=== PATIENT | male | born 1955 | race Caucasian/White ===

== ENCOUNTER 2024-03-25 19:53 | Inpatient (IN) | payer MEDICARE, OTHER, SELFPAY ==
[2024-03-25] VITALS (9 sets, daily range): BP systolic 123–165; BP diastolic 64–76; BMI 28.1; BMI 28.2
[2024-03-25 16:17] LABS: Urine Albumin Negative (Neg - Trace); Urine Bilirubin Negative (Negative); Urine Character Slightly Cloudy (Clear); Urine Color Yellow; Urine Glucose Negative (Negative); Urine Ketone Negative (Negative); Urine Leukocyte 1+ (Negative); Urine Nitrite Negative (Negative); Urine Occult Blood 4+ (Negative); Urine Urobilinogen Negative (Neg - 1+)
[2024-03-25 16:23] LABS: Urine Bacteria Many (Negative); Urine Red Blood Cell 50-60 /HPF (0-2)
--- NOTE | 2024-03-25 16:44 | ED.GENMED ---
History of Present Illness
<Kitty Egde DO, Resident - Last Filed: 03/25/24 19:33>
General
Chief Complaint: Urinary Symptoms
Source: patient and spouse
Exam Limitations: none
Time Seen by Provider: 03/25/24 16:12
Nursing documentation reviewed up to this point in time: agreed with
History of Present Illness
History of Present Illness:
Mr. Sundar Moseley is a 68yo M w pmh CAD s/p stent, HTN, HLD, RA, and vertigo in the ED for pain with urinating. The dysuria started 03:45 this morning and is associated with urinary hesitancy and increased urgency. Afterwards, he walked down a
flight of stairs and started sweating profusely and feeling dizzy, lightheaded, SOB, and nauseous w/o vomiting. Pt states he feels urinary retention after urinating. At about 15:00, he started to notice blood and a purulent discharge in his urine.
Prior to giving urine here for urinalysis, he reported wiping off blood and pus. His reports a temperature of 100.3F today. Pt denies GALEAS, CP, palpitations, cough, abdominal pain, flank pain, diarrhea. +constipation, last BM this AM.
Family hx nephrolithiasis in father and brother.
Past History
<Kitty Edge DO, Resident - Last Filed: 03/25/24 19:33>
Past History
ED Past Medical History: CAD (LAD s/p stent 2020), HTN, Hypercholesterolemia, Other (vertigo) and Other (rheumatoid arthritis)
ED Past Surgical History: Cardiac (LAD stent 2020) and Other (inguinal hernia)
Patient has exhibited threatening behavior?: No
Family History
Family History: Other (kidney stones in father and brother)
Review of Systems
<Kitty Edge DO, Resident - Last Filed: 03/25/24 19:33>
Review of Systems
Allergies reviewed?: Yes
All Other Systems: ROS reviewed and negative except as documented in HPI and ROS
Phy Exam
<Kitty Edge DO, Resident - Last Filed: 03/25/24 19:33>
Physical Exam
Physical Exam:
.
General Physical Exam
General age: appears stated age
General Skin: warm and dry
General Habitus: normal
General Mental: alert
General Hydration: appears well hydrated
Cardiovascular Exam
Cardiovascular Exam: regular rate/rhythm, no edema, no gallop, no murmur and normal peripheral pulses
Pulmonary Exam
Pulmonary Exam: lungs clear, no respiratory distress, no rales, no rhonchi, no wheezing and no cough
Oxygen Status: room air
Gastrointestinal Exam
Gastrointestinal Exam: soft, no organomegaly, non distended, no cva tenderness and tender (epigastric)
Auscultation of Abdomen: hypoactive
Neurological Exam
Neurological Exam: alert and oriented x3
Skin Exam
Skin Exam: normal color, warm/dry and no rash
Psychiatric Exam
Psychiatric Exam: normal mood/affect
Course
<Kitty Edge DO, Resident - Last Filed: 03/25/24 19:33>
Orders/Labs/Results
Orders:
Orders
03/25/24 16:11
Urinalysis Reflex To Culture Urgent
Date Specimen was Collected: 03/25/24
Time Specimen was Collected: 16:07
Urine Microscopic Reflex Cult Urgent
Urine Culture Urgent
FARZAD Source: U
Specimen Description:
Date Specimen was Collected: 03/25/24
Time Specimen was Collected: 16:07
03/25/24 16:41
CT Abd/pel Without Iv Or Oral Urgent
Comment:
Reason For Exam: complicated uti sx, possible kidney stones
03/25/24 16:47
Basic Metabolic Panel Urgent
Complete Blood Count/No Diff Urgent
03/25/24 17:04
Cefepime HCl [Maxipime] 2,000 mg IV NOW STA
03/25/24 17:20
Lactic Acid Q4H
Comment: CANCEL 2nd LACTIC ACID IF 1st LACTIC ACID IS LESS THAN 2
Blood Culture Urgent
FARZAD Source: Blood/Venous
Specimen Description:
03/25/24 17:28
Blood Culture Routine
FARZAD Source: Blood/Venous
Specimen Description:
03/25/24 18:31
0.9% Sodium Chloride 1000 ml [Nss] 1,000 ml IV BOLUS
03/26/24 08:00
Cholecalciferol (Vitamin D3) [VITAMIN D3 (cholecalciferol)] 2,000 unit PO DAILY
FOLic ACID [Folvite] 1 mg PO DAILY
Losartan/Hydrochlorothiazide [Hyzaar 100-12.5 Tablet] 1 tab PO DAILY
Multivitamin [Theragran] 1 ea PO DAILY
03/26/24 18:00
Amlodipine [Norvasc] 2.5 mg PO QPM
Aspirin Low Dose EC [Aspir Low (Enteric Coated)] 81 mg PO QPM
Atorvastatin [Lipitor] 80 mg PO QPM
Celecoxib [Celebrex] 200 mg PO QPM
Hydroxychloroquine [Plaquenil] 400 mg PO QPM
Abnormal Lab Results
03/25/24 03/25/24
16:11 16:47
WBC 21.1 H 10^3/uL
(4.8-10.8)
RBC 4.41 L 10^6/uL
(4.70-6.10)
Hct 37.7 L %
(39.0-52.0)
BUN 21 H mg/dl
(9-20)
Glucose 122 H mg/dl
(70-99)
Ur Occult Blood Reflex 4+ A
(Negative)
Leukocyte Esterase Rfl 1+ A
(Negative)
Urine RBC 50-60 A /HPF
(0-2)
Urine WBC (Reflex) 11-15 A /HPF
(0-5)
Urine Bacteria (Reflex) Many A
(Negative)
03/25/24 16:47
03/25/24 16:47
Vital Signs
Initial and Last Documented VS:
Initial Vital Signs
Temp Pulse Resp BP Pulse Ox
99.3 F 99 18 142/76 95
03/25/24 16:01 03/25/24 16:01 03/25/24 16:01 03/25/24 16:01 03/25/24 16:01
Last Documented Vital Signs
Temp Pulse Resp BP Pulse Ox
99.9 F 84 25 134/67 96
03/25/24 17:48 03/25/24 19:15 03/25/24 19:15 03/25/24 19:00 03/25/24 19:15
<Debbie Agrawal MD - Last Filed: 03/25/24 19:18>
Orders/Labs/Results
Orders:
Orders
03/25/24 16:11
Urinalysis Reflex To Culture Urgent
Date Specimen was Collected: 03/25/24
Time Specimen was Collected: 16:07
Urine Microscopic Reflex Cult Urgent
Urine Culture Urgent
FARZAD Source: U
Specimen Description:
Date Specimen was Collected: 03/25/24
Time Specimen was Collected: 16:07
03/25/24 16:41
CT Abd/pel Without Iv Or Oral Urgent
Comment:
Reason For Exam: complicated uti sx, possible kidney stones
03/25/24 16:47
Basic Metabolic Panel Urgent
Complete Blood Count/No Diff Urgent
03/25/24 17:04
Cefepime HCl [Maxipime] 2,000 mg IV NOW STA
03/25/24 17:20
Lactic Acid Q4H
Comment: CANCEL 2nd LACTIC ACID IF 1st LACTIC ACID IS LESS THAN 2
Blood Culture Urgent
FARZAD Source: Blood/Venous
Specimen Description:
03/25/24 17:28
Blood Culture Routine
FARZAD Source: Blood/Venous
Specimen Description:
03/25/24 18:31
0.9% Sodium Chloride 1000 ml [Nss] 1,000 ml IV BOLUS
03/26/24 08:00
Cholecalciferol (Vitamin D3) [VITAMIN D3 (cholecalciferol)] 2,000 unit PO DAILY
FOLic ACID [Folvite] 1 mg PO DAILY
Losartan/Hydrochlorothiazide [Hyzaar 100-12.5 Tablet] 1 tab PO DAILY
Multivitamin [Theragran] 1 ea PO DAILY
03/26/24 18:00
Amlodipine [Norvasc] 2.5 mg PO QPM
Aspirin Low Dose EC [Aspir Low (Enteric Coated)] 81 mg PO QPM
Atorvastatin [Lipitor] 80 mg PO QPM
Celecoxib [Celebrex] 200 mg PO QPM
Hydroxychloroquine [Plaquenil] 400 mg PO QPM
Abnormal Lab Results
03/25/24 03/25/24
16:11 16:47
WBC 21.1 H 10^3/uL
(4.8-10.8)
RBC 4.41 L 10^6/uL
(4.70-6.10)
Hct 37.7 L %
(39.0-52.0)
BUN 21 H mg/dl
(9-20)
Glucose 122 H mg/dl
(70-99)
Ur Occult Blood Reflex 4+ A
(Negative)
Leukocyte Esterase Rfl 1+ A
(Negative)
Urine RBC 50-60 A /HPF
(0-2)
Urine WBC (Reflex) 11-15 A /HPF
(0-5)
Urine Bacteria (Reflex) Many A
(Negative)
03/25/24 16:47
03/25/24 16:47
Vital Signs
Initial and Last Documented VS:
Initial Vital Signs
Temp Pulse Resp BP Pulse Ox
99.3 F 99 18 142/76 95
03/25/24 16:01 03/25/24 16:01 03/25/24 16:01 03/25/24 16:01 03/25/24 16:01
Last Documented Vital Signs
Temp Pulse Resp BP Pulse Ox
99.9 F 84 25 134/67 96
03/25/24 17:48 03/25/24 19:15 03/25/24 19:15 03/25/24 19:00 03/25/24 19:15
<Kitty Edge DO, Resident - Last Filed: 03/25/24 19:33>
MDM/Problems Addressed
Differential Diagnosis Includes:
pyelonephritis, nephrolithiasis, sepsis, bph, urinary retention
MDM/Problems Addressed:
Mr. Sundar Moseley is a 68yo M w pmh CAD s/p stent, HTN, HLD, RA, and vertigo in the ED for pain with urinating since this morning. [place] dizzy, lightheaded, nauseous, and profusely sweated this morning. 12 hours after the first episode of dysuria,
he started noticing blood and purulence in his urine.
Urinary retention is unlikely, as he had 4mL on bladder scan.
Nephrolithiasis is unlikely, as there was no evidence of a renal or ureteral calculus on CT abdomen/pelvis w/o contrast.
Pt has known BPH. The acute onset of his urinary sx suggest there is a more insidious cause.
Sepsis/bacteremia is unlikely at this time, as pt is hemodynamically stable and afebrile.
UTI is possible due to positive blood, leukocyte esterase, and bacteria on urinalysis/urine microscopy. However, presence of perinephric fat on CT suggest a more proximal source of infection.
CT Abdomen/Pelvis w/o contrast:
1. Mild diffuse urinary bladder wall thickening which could be secondary to acute cystitis or chronic urinary bladder outlet obstruction.
2. Moderate enlargement of the prostate gland.
3. Mild bilateral perinephric fat stranding consistent with bilateral renal disease (possibly acute pyelonephritis if there are signs/symptoms of ascending urinary tract infection).
4. Severe diverticulosis in the descending and sigmoid colon.
5. Severe calcific atherosclerotic plaque in the abdominal aorta.
6. Severe multilevel discogenic degenerative disease in the lumbar spine.
17:45
Pt resting in bed. HR 82, O2 went down to 92, T 99.9, RR 25. Accessory respiratory muscle use. Denies dyspnea.
Receiving IV cefepime.
SIRS is likely due to tachypnea 25 breaths per minute and leukocytosis 21.1 10^3/uL, which meets the required minimum 2/4 criteria.
Concern for pyelonephritis due to CT findings of perinephric fat, which correlates with pyelonephritis.
19:20
Discussed plan to admit for treatment of pyleonephritis. Pt is agreeable.
Chronic conditions affecting care: HTN, CAD (s/p stent 2020) and Previous abdomnial surgery
<Kitty Edge DO, Resident - Last Filed: 03/25/24 19:33>
*Radiology
Radiology exam reviewed: preliminary read by ED provider and radiology read reviewed
*Pulse Oximetry
Patient hypoxic: yes
*[employer] Interpretation
Rate: normal
Interpretation: normal
Heart Rate: 82
Rhythm: sinus
*Critical Care Note
Total Time (30-74mins, 75-104mins- exclusive of procedures): Not Applicable
Data Reviewed
Review of Other/Old Records Reveals: Operative Reports and Testing
Source: patient and records
ED Attending Note
<Kitty Edge DO, Resident - Last Filed: 03/25/24 19:33>
-
Portions of this chart may have been created with voice recognition software.� Occasional wrong word or��sound alike� substitutions may have occurred due to the inherent limitations of voice recognition software.
<Debbie Agrawal MD - Last Filed: 03/25/24 19:18>
ED Attending Note
Patient seen and examined by attending physician: Yes
I performed a history and physical exam of patient and discussed management with resident, I reviewed resident's note and agree with documented findings and plan of care.: Yes
ED Attending Note:
68-year-old male who is feeling his usual self until approximately 330 or 4 AM when he awoke having to urinate and noting hesitancy, urgency, and discomfort. He describes dribbling a little bit into the toilet before being able to have a strong
stream. This was very uncomfortable to him and so he walked downstairs. As is typical for him when he is pain, he started to feel like a pass out associated with lightheadedness, nausea, and diaphoresis. He did not have chest pain at that time.
Those near syncopal symptoms resolved, but patient notes that he feels like he is not completely emptying his bladder, he has urinary frequency, hematuria, and what he thought look like pus in his urine. His notes patient had a low-grade fever
today 0.3. Patient denies abdominal pain, flank pain, shaking chills, rigors, or other complaints. On exam patient is overall well-appearing. No CVA tenderness abdomen soft nontender. exam grossly normal without lesions, active discharge or
bleeding, etc. CT does not demonstrate stone, however findings that are likely consistent with acute pyelonephritis. Antibiotics started. Does not meet SIRS criteria at this time, blood pressure remained stable.
7:17 PM testing results reviewed, consistent with acute pyelonephritis with some SIRS criteria met given white blood cell count tachypnea etc. Overall patient generally nontoxic-appearing. Antibiotics started, blood pressure remained stable. Case
discussed with hospitalist for admission
Discharge Plan
Departure
Patient Disposition: Admit
Date of Disposition: 03/25/24
Time of Disposition: 19:17
Admit to: Med/Surg
Admit to doctor: caryn
Presentation/result/management discussed w/ accepting MD/DO: Hospitalist
Patient with high blood pressure during this ER visit?: Yes
Condition: Good
Discharge Problem:
Acute pyelonephritis
Prescriptions:
No Action
multivitamin [Daily-Jose] 1 EACH tablet
1 ea PO DAILY
aspirin [Ecotrin Low Strength] 81 MG tablet,delayed release (DR/EC)
81 mg PO QPM
cholecalciferol (vitamin D3) [Vitamin D3] 1,000 UNIT capsule
2,000 unit PO DAILY
atorvastatin 80 MG tablet
80 mg PO QPM Qty: 90 5RF
amlodipine [Norvasc] 2.5 mg Tablet
2.5 mg PO QPM
sildenafil 100 mg Tablet
100 mg PO DAILYPRN PRN (Reason: ed)
methotrexate sodium 2.5 mg Tablet
7.5 mg PO MO
folic acid 1 mg Tablet
1 mg PO DAILY
hydroxychloroquine [Plaquenil] 200 mg Tablet
400 mg PO QPM
losartan-hydrochlorothiazide 100-12.5 mg Tablet
1 tab PO DAILY
celecoxib 200 mg Capsule
200 mg PO QPM
turmeric 400 mg Capsule
1,500 mg PO BID
Referrals:
Aileen Mobley DO [Family Provider] -
Interventions
Interventions:
*Risk Screen - Suicide Last Done: 03/25/24 16:01
*General Assessment Last Done: 03/25/24 16:01
*Neglect/Abuse Screening Last Done: 03/25/24 16:01
ED- Fall Risk Assessment Last Done: 03/25/24 16:26
ED-Male Genitourinary Assessment Last Done: 03/25/24 16:26
Discharge Date and Time
Print Language: WOLOF
[2024-03-25 16:54] LABS: Hematocrit 37.7 % (39.0-52.0); Hemoglobin 13.1 g/dL (13.0-18.0); Mean Corp Hgb Conc. 34.7 g/dL (33.0-37.0); Mean Corpuscular Hgb 29.7 pg (27.0-31.0); Mean Corpuscular Volume 85.5 fL (80.0-94.0); Platelet Count 212 10^3/uL (130-400); Red Blood Cell Count 4.41 10^6/uL (4.70-6.10); Red Cell Dist. Width 12.3 % (11.5-14.5); White Blood Cell Count 21.1 10^3/uL (4.8-10.8)
[2024-03-25] MEDS: MAXIPIME 2000 MG IV (17:32)
[2024-03-25 17:55] LABS: Blood Urea Nitrogen 21 mg/dl (9-20); Calcium 9.9 mg/dl (8.4-10.2); Carbon Dioxide 26 mmol/L (22-30); Chloride 98 mmol/L (98-107); Estimated Creatinine Clearance 92 ml/min; Glucose 122 mg/dl (70-99); Potassium 4.4 mmol/L (3.5-5.1); Sodium 139 mmol/L (135-145); eGFR > 60.00
[2024-03-25] MEDS: NSS 1000 IV (18:34)
--- NOTE | 2024-03-25 19:41 | HPS.HSE ---
Family Physician
-
Family Physician: Aileen Mobley
Chief Complaint
-
Acute urinary symptoms and fever
History of Present Illness
This is a 68-year-old male who has a past medical history of CAD status post PCI, rheumatoid arthritis on methotrexate and Plaquenil, hypertension, hyperlipidemia, presents to the emergency department with acute urinary tract symptoms and febrile
illness.
Patient arose at around 4 AM and immediately had incontinence and dysuria. He did not develop chills and then became diaphoretic. Throughout the day the patient continued to have dysuria incontinence urgency as well as frequency. A clinic to have
recurrent chills and sweating episodes. He did not measure his temperature at home. He denies any nausea or vomiting. He denies any abdominal pain. He denies flank pain.
Patient denies any history of recurrent urinary tract infections. He denies a personal history of kidney stones. He has not been hospitalized recently. He denies any recent instrumentation such as urinary catheterization or scopes. Patient
denies personal history of BPH. He does say that he did not he has intermittent episodes of dribbling and nocturia. He is supposed to follow with urology but he has not made his appointment yet.
On arrival in the emergency department he was febrile to
0.9 but otherwise hemodynamically stable. His UA was markedly positive WBCs RBCs leukocyte esterase and bacteriuria. White count was 21,000, rest of the CBC was unremarkable. Chemistries were all within normal limits.
He had a CT of the abdomen pelvis which showed bilateral perinephric fat stranding which is consistent with medical renal disease or pyelonephritis possibly.
Medical History
Past Medical History
Past Medical History: Reports CAD, HTN and Hypercholesterolemia
Additional Past Medical History:
Rheumatoid athritis
Past Surgical History: Reports Appendectomy and Orthopedic
Social History
Tobacco: Non-smoker
Alcohol: Occasional
Drug: None
Personal:
Living: With Family
Employment: Retired
Family History
Family History: Other (Kidney Stones)
Allergies / Home Medications
Allergies reflects when Allergies were last updated in [facility].
Home Medications with original date entered in [facility]
Allergy/Medication List:
Allergies
Allergy/AdvReac Type Severity Reaction Status Date / Time
No Known Allergies Allergy Verified 03/25/24 16:01
Home Medications
aspirin 81 mg tablet,delayed release (Ecotrin Low Strength) 81 mg PO QPM 09/18/20
atorvastatin 80 mg tablet 80 mg PO QPM #90 tabs 09/18/20
cholecalciferol (vitamin D3) 25 mcg (1,000 unit) capsule (Vitamin D3) 2,000 unit PO DAILY 09/18/20
multivitamin (Daily-Jose tablet) 1 ea PO DAILY 09/18/20
amlodipine 2.5 mg tablet (Norvasc) 2.5 mg PO QPM 03/25/24
celecoxib 200 mg capsule 200 mg PO QPM 03/25/24
folic acid 1 mg tablet 1 mg PO DAILY 03/25/24
hydroxychloroquine 200 mg tablet (Plaquenil) 400 mg PO QPM 03/25/24
losartan 100 mg-hydrochlorothiazide 12.5 mg tablet 1 tab PO DAILY 03/25/24
methotrexate sodium 2.5 mg tablet 7.5 mg PO MO 03/25/24
sildenafil 100 mg tablet 100 mg PO DAILYPRN PRN ed 03/25/24
turmeric 400 mg capsule 1,500 mg PO BID 03/25/24
Review of Systems
-
History Source: Patient
Constitutional: Reports Fever and Chills
EENT: Reports No Symptoms
Respiratory: Reports No Symptoms
Cardiac: Reports No Symptoms
Abdomen/GI: Reports No Symptoms
: Reports Dysuria, Frequency, Incontinence and Urgency
Musculoskeletal: Reports No Symptoms
Skin: Reports No Symptoms
Neurological: Reports No Symptoms
Endocrine: Reports No Symptoms
Hematologic/Lymphatic: Reports No Symptoms
Psych: Reports No Symptoms
Physical Exam
Vital Signs
Vital Signs
Temp Pulse Resp BP Pulse Ox
99.9 F 84 25 134/67 96
03/25/24 17:48 03/25/24 19:15 03/25/24 19:15 03/25/24 19:00 03/25/24 19:15
Physical Exam
General: Well Developed, Well Nourished, No Apparent Distress and Comfortable
HEENT: NormoCephalic, Anicteric, Moist mucous membranes and Atraumatic
Respiratory: Clear
Cardiac: S1/S2 and Regular Rhythm
Breast: Deferred by me
GI: Soft, Non Tender, Non Distended and Normal Bowel Sounds
Rectal: Deferred by Provider
Genito-urinary: Clear Urine and No costovertebral tender
Musculoskeletal: No Clubbing, No Cyanosis and No Edema
Skin: Warm
Neuro: AO x 3
Hematologic/Lymphatic: No Lymphadenopathy
Psych: Calm
Laboratory Results
-
03/25/24 16:47
03/25/24 16:47
Laboratory Results
Lactic Acid Cancelled 03/25/24 21:15
Data Reviewed
-
CT Scan: Report Reviewed by me
Lab Data: Labs Reviewed by me
Old Records: Reviewed
Impression/Plan
-
IMPRESSION:
68 y.o with RA on immunosuppression with methotrexate and hydroxychloroquine presenting with chills and lower urinary tract symptoms, found to have markedly positive u/a and leukocytosis c/w cystitis and possibly pyelonephritis.
PLAN:
1. Complicated UTI - Male on immunosuppression with low grade temps, dysuria, frequency, urgency c/w UTI and possibly pyelonephritis. Given immunosuppression he has intermediate risk of decompensation. Predisposing factor is possibly undiagnosed
BPH. No stones on CT scan or hx of stones, no instrumentation or anatomic anomaly.
- admit to med/surg
- blood cultures and urine cultures sent
- given cefepime in ED, continuing with ceftriaxone as no known risks for pseudomonas.
- antipyretics, analgesics and treatment control
- holding methotrexate
2. CAD - S/p PCI ~ 5 yrs ago
- asa 81, statin
3, HTN - stable on home meds
- continue losartan-hctz
- continue amlodipine
4. RA
- holding methotrexate
- continue hydroxychloroquine.
DVT PPX - lovenox sq
Code Status - Full Code
[2024-03-25] MEDS: DILAUDID 0.5 MG IV (21:19)
[2024-03-25] MEDS: Pyridium 100 MG PO (21:44)
[2024-03-25] MEDS: LOW STRENGTH ASPIRIN 81 MG PO (22:08)
[2024-03-25] MEDS: PLAQUENIL 400 MG PO (22:08)
[2024-03-25] MEDS: NORVASC 2.5 MG PO (22:08)
[2024-03-25] MEDS: CELEBREX 200 MG PO (22:08)
[2024-03-25] MEDS: LIPITOR 80 MG PO (22:08)
--- NOTE | 2024-03-25 22:10 | PTCARENOTE ---
Receive pt from ER. Pt alert oriented X3, calm and cooperative. Pt assist X1 to his bed, steady on his feet. Pt oriented to the room, call ramirez within reach. Pt complains about dysuria, feels the urge to urinate, but not able to. Pt also complains
about pain in the lower abd (/). Pt denies any other pain. Denies SOB or flank pain, but reports mild dizziness at time. EF=152/73, HR=88, RR=20, SpO2=95% on RA, afebrile T=97.5. Dilaudid 0.5mg given for pain and Pyridium given for dysuria as per
order. Will contnue to monitor the pt.
[2024-03-25] MEDS: MELATONIN 5 MG PO (23:51)
[2024-03-26] MEDS: Pyridium 100 MG PO ×3 (06:28→23:37)
[2024-03-26 07:15] VITALS: BP 130/60
[2024-03-26] MEDS: FOLVITE 1 MG PO (07:38)
[2024-03-26] MEDS: THERAGRAN 1 TABLET PO (07:38)
[2024-03-26] MEDS: VITAMIN D3 (cholecalciferol) 50 MCG PO (07:38)
[2024-03-26] MEDS: HYZAAR 100-12.5 TABLET 1 TAB PO (07:39)
[2024-03-26] MEDS: ROCEPHIN 1000 MG IV (07:39)
[2024-03-26] MEDS: STERILE WATER FOR INJECTION 10 ML IV (07:39)
[2024-03-26 08:01] LABS: Hematocrit 35.8 % (39.0-52.0); Hemoglobin 12.2 g/dL (13.0-18.0); Mean Corp Hgb Conc. 34.1 g/dL (33.0-37.0); Mean Corpuscular Hgb 30.6 pg (27.0-31.0); Mean Corpuscular Volume 89.7 fL (80.0-94.0); Mean Platelet Volume 10.8 fL (7.4-10.4); Platelet Count 187 10^3/uL (130-400); Red Blood Cell Count 3.99 10^6/uL (4.70-6.10); Red Cell Dist. Width 12.6 % (11.5-14.5); White Blood Cell Count 26.5 10^3/uL (4.8-10.8)
[2024-03-26 08:18] LABS: Blood Urea Nitrogen 22 mg/dl (9-20); Calcium 9.3 mg/dl (8.4-10.2); Carbon Dioxide 25 mmol/L (22-30); Chloride 99 mmol/L (98-107); Estimated Creatinine Clearance 105 ml/min; Glucose 103 mg/dl (70-99); Sodium 139 mmol/L (135-145); eGFR > 60.00
[2024-03-26] MEDS: DILAUDID 0.5 MG IV ×2 (09:59→16:52)
[2024-03-26] MEDS: MIRALAX 17 GRAMS PO (10:03)
--- NOTE | 2024-03-26 11:38 | W.PN.HOSP.TC ---
Today's Communication/Plan
-
await culture data
IV abx
trend wbc/fever curve
oob
Assessment / Plan
Assessment / Plan
68 y.o with RA on immunosuppression with methotrexate and hydroxychloroquine presenting with chills and lower urinary tract symptoms, found to have markedly positive u/a and leukocytosis c/w cystitis and possibly pyelonephritis.
PLAN:
1. Complicated UTI - Male on immunosuppression with low grade temps, dysuria, frequency, urgency c/w UTI and possibly pyelonephritis. Given immunosuppression he has intermediate risk of decompensation. Predisposing factor is possibly undiagnosed
BPH. No stones on CT scan or hx of stones, no instrumentation or anatomic anomaly.
- blood cultures and urine cultures in lab
- given cefepime in ED, continuing with ceftriaxone as no known risks for pseudomonas.
- antipyretics, analgesics and treatment control
- holding methotrexate
2. CAD - S/p PCI ~ 5 yrs ago
- asa 81, statin
3, HTN - stable on home meds
- continue losartan-hctz
- continue amlodipine
4. RA
- holding methotrexate
- continue hydroxychloroquine.
DVT PPX - lovenox sq
Code Status - Full Code
Anticipated Discharge: > 48 hours
Subjective/Interval History
-
Date of Service: March 26, 2024
states of suprapubic pain
states of dysuria
Objective Data
-
Labs:
Laboratory Results
03/26/24
05:42
WBC 26.5 H
Hgb 12.2 L
Hct 35.8 L
Plt Count 187
Sodium 139
Potassium 4.0
Chloride 99
Carbon Dioxide 25
BUN 22 H
Creatinine 0.7
Glucose 103 H
Calcium 9.3
Vital Signs:
Vital Signs
Temp Pulse Resp BP Pulse Ox
98.1 F 68 18 130/60 97
03/26/24 07:15 03/26/24 07:39 03/26/24 07:15 03/26/24 07:39 03/26/24 07:45
I&O
03/25/24 03/26/24 03/27/24
06:59 06:59 06:59
Output Total 400 / 400
Balance -400 / -400
Physical Exam
-
General: Well Developed and No Apparent Distress
HEENT: Normocephalic, Atraumatic and Moist Mucous Membranes
Respiratory: Clear to Auscultation
Cardiac: Regular Rhythm and S1/S2; Negative Murmur, Rub or Gallop
GI: Soft, Nondistended, Normal Bowel Sounds and Tender (suprapubic ); Negative Organomegaly
Rectal: Deferred by Provider
Musculoskeletal: No Clubbing, No Cyanosis and No Edema
Skin: Negative Rash
Neuro: Awake, Alert, Oriented, AO x 3, No Motor Deficits and Nonfocal/Grossly Intact
Psych: Calm
Data Reviewed
-
Total Time Spent with Patient (in minutes): 58
[2024-03-26 15:31] VITALS: BP 143/69
--- NOTE | 2024-03-26 15:49 | CM ---
CM following re: d/c planning.
CM met with pt and spouse at bedside.
Pt independent with mobility and ADLs.
No DME or VN in the home.
PCP is Dr. Mobley and pharmacy is [facility] .
Pt denies d/c needs.
CM will continue to follow.
--- NOTE | 2024-03-26 15:53 | PTCARENOTE ---
Received patient this am AAOx3. Pt complained of pain perineum area. Medicated with Dilaudid IV with relief. Pt complained of burning with urination Pt medicated PRN with Pyridium with relief. Tolerated diet well. OOB ambulating independently with
a steady gait in room and hallway. Made patient comfortable. Cont to assess patient status.
[2024-03-26] MEDS: NORVASC 2.5 MG PO (17:33)
[2024-03-26] MEDS: CELEBREX 200 MG PO (17:33)
[2024-03-26] MEDS: ASPIR LOW (ENTERIC COATED) 81 MG PO (17:33)
[2024-03-26] MEDS: PLAQUENIL 400 MG PO (17:33)
[2024-03-26] MEDS: LIPITOR 80 MG PO (17:34)
[2024-03-26] MEDS: LOVENOX 40 MG SC (17:34)
[2024-03-26] MEDS: SENOKOT-S 1 TABLET PO (20:20)
[2024-03-26 23:13] VITALS: BP 150/77
[2024-03-27] MEDS: DILAUDID 0.5 MG IV ×2 (03:34→14:56)
[2024-03-27 07:00] VITALS: BP 141/76
[2024-03-27] MEDS: THERAGRAN 1 TABLET PO (08:03)
[2024-03-27] MEDS: MIRALAX 17 GRAMS PO (08:03)
[2024-03-27] MEDS: FOLVITE 1 MG PO (08:03)
[2024-03-27] MEDS: VITAMIN D3 (cholecalciferol) 50 MCG PO (08:04)
[2024-03-27] MEDS: HYZAAR 100-12.5 TABLET 1 TAB PO (08:04)
[2024-03-27] MEDS: ROCEPHIN 1000 MG IV (08:04)
[2024-03-27] MEDS: STERILE WATER FOR INJECTION 10 ML IV (08:04)
[2024-03-27] MEDS: SENOKOT-S 1 TABLET PO ×2 (08:04→20:08)
[2024-03-27] MEDS: FLUSH (NSS) 1 FLUSH IV ×2 (08:04→14:57)
[2024-03-27 08:56] LABS: % Basophils 0.3 % (0-2); % Eosinophils 0.3 % (0-6); % Immature Granulocytes 0.6 % (0-0.5); % Lymphocytes 4.6 % (20.5-51.1); % Neutrophils 85.2 % (42.2-75.2); Absolute Basophils 0.1 10^3/uL (0-0.2); Absolute Eosinophils 0.1 10^3/uL (0-0.7); Absolute Immature Granulocytes 0.1 10^3/uL (0-0.05); Absolute Monocytes 1.9 10^3/uL (0.1-0.6); Absolute Neutrophils 17.6 10^3/uL (1.4-6.5); Hematocrit 38.7 % (39.0-52.0); Hemoglobin 13.2 g/dL (13.0-18.0); Mean Corp Hgb Conc. 34.1 g/dL (33.0-37.0); Mean Corpuscular Hgb 30.3 pg (27.0-31.0); Mean Platelet Volume 10.4 fL (7.4-10.4); Nucleated Red Blood Cells % 0 % (-); Platelet Count 198 10^3/uL (130-400); Red Blood Cell Count 4.35 10^6/uL (4.70-6.10); Red Cell Dist. Width 12.3 % (11.5-14.5); White Blood Cell Count 20.6 10^3/uL (4.8-10.8)
--- NOTE | 2024-03-27 09:33 | W.PN.HOSP.TC ---
Today's Communication/Plan
-
Bladder US
continue Rocephin pending Cx
Assessment / Plan
Assessment / Plan
68 y.o with RA on immunosuppression with methotrexate and hydroxychloroquine presenting with chills and lower urinary tract symptoms, found to have markedly positive u/a and leukocytosis c/w cystitis and possibly pyelonephritis.
PLAN:
1. Complicated UTI - Male on immunosuppression with low grade temps, dysuria, frequency, urgency c/w UTI and possibly pyelonephritis. Given immunosuppression he has intermediate risk of decompensation. Predisposing factor is possibly undiagnosed
BPH. No stones on CT scan or hx of stones, no instrumentation or anatomic anomaly.
- blood cultures - NGTD
urine cultures - Proteus sens pending
- given cefepime in ED, continuing with ceftriaxone as no known risks for pseudomonas.
- antipyretics, analgesics and treatment control
- holding methotrexate
WBC 21.2-->26.5-->20.[address] Arango, requests Bladder US, if evidence of significant retention rec Urology consult, if not pt should follow up in office
2. CAD - S/p PCI ~ 5 yrs ago
- asa 81, statin
3, HTN - stable on home meds
- continue losartan-hctz
- continue amlodipine
4. RA
- holding methotrexate
- continue hydroxychloroquine.
5. Chronic constipation with diverticular disease
pt receiving various stool agents, pt wishes to see if responds prior to adding more
DVT PPX - lovenox sq
Code Status - Full Code
Anticipated Discharge: 24 - 48 hours
Subjective/Interval History
-
Date of Service: March 27, 2024
chronic BPH symptoms, chronic diverticulosis symptoms
Objective Data
-
Labs:
Laboratory Results
03/27/24
08:29
WBC 20.6 H
Hgb 13.2
Hct 38.7 L
Plt Count 198
Vital Signs:
Vital Signs
Temp Pulse Resp BP Pulse Ox
98.6 F 77 18 141/76 97
03/27/24 07:00 03/27/24 08:04 03/27/24 07:00 03/27/24 08:04 03/27/24 07:58
I&O
03/26/24 03/27/24 03/28/24
06:59 06:59 06:59
Intake Total 1020 / 1020
Output Total 400 / 400 1000 / 1000
Balance -400 / -400
Review of Systems
-
History Source: Patient and Physician (discussed with Dr. Arango)
Constitutional: Denies Fever
EENT: Reports No Symptoms Reported
Respiratory: Reports No Symptoms
Cardiac: Reports No Symptoms
Abdomen/GI: Reports Constipated
Genitourinary: Reports Dysuria, Frequency and Difficulty Voiding (has been chronic, but significantly worsened with associated acute episode)
Physical Exam
-
General: Well Developed, Well Nourished and No Apparent Distress
HEENT: Normocephalic, Atraumatic and Moist Mucous Membranes
Respiratory: Clear to Auscultation; Negative Wheezes, Rales or Rhonchi
Cardiac: Regular Rhythm and S1/S2
GI: Soft, Nontender and Nondistended
Musculoskeletal: No Clubbing, No Cyanosis and No Edema
Neuro: Awake, Alert and Oriented
[2024-03-27] MEDS: Pyridium 100 MG PO ×2 (09:51→14:56)
[2024-03-27 15:00] VITALS: BP 144/77
--- NOTE | 2024-03-27 15:27 | PTCARENOTE ---
Pt AAO x3, GARLAND well, OOB ambulating in room/barraza; ethan well. VSS. On room air- pulse ox 94%, no SOB noted. Abd large, soft, ethan PO well. pt voiding small amts orange urine in urinal; c/o dysuria/discomfort when voiding; also c/o lower abd
discomfort when lying flat/sitting in chair; renal US completed. Temp currently 99.4 PO. Resting quietly at present. Will continue to monitor.
[2024-03-27] MEDS: DULCOLAX 10 MG RECTAL (16:28)
[2024-03-27] MEDS: ASPIR LOW (ENTERIC COATED) 81 MG PO (17:43)
[2024-03-27] MEDS: LIPITOR 80 MG PO (17:43)
[2024-03-27] MEDS: CELEBREX 200 MG PO (17:43)
[2024-03-27] MEDS: LOVENOX 40 MG SC (17:44)
[2024-03-27] MEDS: NORVASC 2.5 MG PO (17:44)
[2024-03-27] MEDS: PLAQUENIL 400 MG PO (17:44)
[2024-03-27 18:30] LABS: Hepatitis C Antibody Negative (Negative)
--- NOTE | 2024-03-27 19:35 | CONS.URO ---
Consultation
-
Reason for Consultation: UTI, retention
Medical History
History of Present Illness
68M without significant prior urologic history
Per his recollection he has a high normal PSA on routine screening
Months or years of worsening baseline LUTS with frequency, weak stream, nocturia
Acute onset dysuria, fever, incontinence
CT on admission showed b/l renal stranding though bladder appeared decompressed
He was admitted for septic UTI
Urine culture growing proteus
He had had worsening dysuria and continued difficulty emptying
Repeat US today showed PVR 450cc and 94cc prostate volume
Past Medical History
Past Medical History: Other (CAD, HTN and Hypercholesterolemia)
Past Surgical History: Appendectomy and Orthopedic
Social History
Tobacco: Non-smoker
Alcohol: Occasional
Drug: None
Family History
Family History: Reviewed & Not Pertinent
Allergies/Home Medications
Allergies
Allergy/AdvReac Type Severity Reaction Status Date / Time
No Known Allergies Allergy Verified 03/25/24 16:01
Home Medications
�Medication �Instructions �Recorded �Confirmed �Type
aspirin 81 mg tablet,delayed 81 mg PO QPM Blood Clot 09/18/20 03/25/24 History
release (Ecotrin Low Strength) Prevention/Tx
atorvastatin 80 mg tablet 80 mg PO QPM #90 tabs 09/18/20 03/25/24 Rx
cholecalciferol (vitamin D3) 25 2,000 unit PO DAILY Supplement 09/18/20 03/25/24 History
mcg (1,000 unit) capsule (Vitamin
D3)
multivitamin (Daily-Jose tablet) 1 ea PO DAILY Supplement 09/18/20 03/25/24 History
amlodipine 2.5 mg tablet (Norvasc) 2.5 mg PO QPM Blood Pressure 03/25/24 03/25/24 History
celecoxib 200 mg capsule 200 mg PO QPM Pain 03/25/24 03/25/24 History
folic acid 1 mg tablet 1 mg PO DAILY Supplement 03/25/24 03/25/24 History
hydroxychloroquine 200 mg tablet 400 mg PO QPM rheumatoid arthritis 03/25/24 03/25/24 History
(Plaquenil)
losartan 100 1 tab PO DAILY Blood Pressure 03/25/24 03/25/24 History
mg-hydrochlorothiazide 12.5 mg
tablet
methotrexate sodium 2.5 mg tablet 7.5 mg PO MO rheumatoid arthritis 03/25/24 03/25/24 History
sildenafil 100 mg tablet 100 mg PO DAILYPRN PRN ed 03/25/24 03/25/24 History
turmeric 400 mg capsule 1,500 mg PO BID Supplement 03/25/24 03/25/24 History
Physical Exam
Vital Signs
Vital Signs
Temp Pulse Resp BP Pulse Ox
99.4 F 74 16 144/77 94
03/27/24 15:00 03/27/24 17:44 03/27/24 15:00 03/27/24 17:44 03/27/24 15:26
Lab / Testing Results
Laboratory Results
03/27/24 08:29
03/26/24 05:42
Physical Exam
General: Well Developed, Well Nourished and No Apparent Distress
Respiratory: Clear and Non Labored Respirations
GI: Soft and Non Tender
Genito-urinary: No Costovertebral Tend
Skin: Warm and Dry
Neuro: AO x 3 and No Motor Deficits
Psych: Calm and Intact Judgement
Assessment / Plan
-
68M admitted with febrile UTI, possible ascending component
Since admission has developed urinary retention with 450cc post void residual
- Perera placement for acute urinary retention
- Start tamsulosin 0.4mg daily and continue at time of discharge
- Continue IV abx and narrow per culture results at discharge for 10-14 day total abx course for complicated UTI
- Remove perera for trial of void early AM on day of expected discharge. If unable to void or PVR >150cc, replace perera and discharge with perera in place
- Outpatient urology follow up - contact info provided to patient
Please call with any questions
Data Reviewed
-
CT Scan: Image personally visualized and interpreted
Ultrasound: Image personally visualized and interpreted
Lab Data: Labs Reviewed
[2024-03-27] MEDS: FLOMAX 0.4 MG PO (20:08)
[2024-03-27 23:17] VITALS: BP 138/73
[2024-03-28] MEDS: Pyridium 100 MG PO ×3 (00:28→19:55)
[2024-03-28] MEDS: TYLENOL 650 MG PO ×2 (00:28→14:49)
[2024-03-28 06:55] VITALS: BP 112/65
[2024-03-28 07:28] LABS: % Basophils 0.5 % (0-2); % Eosinophils 0.4 % (0-6); % Immature Granulocytes 0.6 % (0-0.5); % Lymphocytes 7.1 % (20.5-51.1); % Monocytes 10.3 % (1.7-9.3); % Neutrophils 81.1 % (42.2-75.2); Absolute Basophils 0.1 10^3/uL (0-0.2); Absolute Immature Granulocytes 0.1 10^3/uL (0-0.05); Absolute Lymphocytes 0.8 10^3/uL (1.2-3.4); Absolute Monocytes 1.1 10^3/uL (0.1-0.6); Absolute Neutrophils 8.7 10^3/uL (1.4-6.5); Hematocrit 35.6 % (39.0-52.0); Mean Corp Hgb Conc. 33.7 g/dL (33.0-37.0); Mean Corpuscular Hgb 30.1 pg (27.0-31.0); Mean Corpuscular Volume 89.2 fL (80.0-94.0); Mean Platelet Volume 10.4 fL (7.4-10.4); Nucleated Red Blood Cells % 0 % (-); Platelet Count 178 10^3/uL (130-400); Red Blood Cell Count 3.99 10^6/uL (4.70-6.10); Red Cell Dist. Width 12.4 % (11.5-14.5); White Blood Cell Count 10.7 10^3/uL (4.8-10.8)
[2024-03-28 07:55] LABS: Blood Urea Nitrogen 16 mg/dl (9-20); Calcium 9.2 mg/dl (8.4-10.2); Carbon Dioxide 29 mmol/L (22-30); Chloride 100 mmol/L (98-107); Estimated Creatinine Clearance 92 ml/min; Glucose 115 mg/dl (70-99); Potassium 4.6 mmol/L (3.5-5.1); Sodium 139 mmol/L (135-145); eGFR > 60.00
--- NOTE | 2024-03-28 08:06 | PN.CDI ---
CDI
- -
CDI:
Physician Documentation Request
Admit Date: 03/25/24 19:53
Dear Doctor Ana,
Patient admitted with UTI.
03/27 PN, 'Complicated UTI....given cefepime in ED, continuing with ceftriaxone.... Given immunosuppression he has intermediate risk of decompensation. '
03/27 Urology note, 'He was admitted for septic UTI...Urine culture growing proteus.'
On admission, WBC 21.1 and HR 99.
Please clarify which of the following most accurately describes the status of the patient's infection:
Sepsis, POA
UTI only
Other
Sepsis
- Systemic manifestations of infection, with 2 or more SIRS criteria which include:
- Fever >100.4 degrees F or hypothermia < 96.8 degrees F
- Leukocytosis - WBC > 12,000 or leukopenia - WBC < 4,000 or > 10% bands
- Tachycardia > 90 beats per minute
- Tachypnea - RR > 20 breaths per minute or PaCO2 , 32mmHg
Source: Merck Manual 2013
- Indicate the known or suspected organism
- Indicate the known or suspected underlying infection, such as UTI
Localized Infection Only, Without Systemic Illness
- indicate the site/source, such as UTI
Other
Unable to Determine
Use of terms such as suspected, likely, concern for, or probable (associated with a specific diagnosis that is being evaluated, monitored, or treated as if it exists) are acceptable and can be coded in the inpatient setting, when documented at the
time of discharge.
Thank you,
Sally GARCIA,RN,CCDS
CDI Specialist
Available via [place] text
Please use your independent medical judgment in providing your response.
[2024-03-28] MEDS: FOLVITE 1 MG PO (08:19)
[2024-03-28] MEDS: VITAMIN D3 (cholecalciferol) 50 MCG PO (08:19)
[2024-03-28] MEDS: MIRALAX 17 GRAMS PO (08:19)
[2024-03-28] MEDS: ROCEPHIN 1000 MG IV (08:20)
[2024-03-28] MEDS: SENOKOT-S 1 TABLET PO ×2 (08:20→19:56)
[2024-03-28] MEDS: STERILE WATER FOR INJECTION 10 ML IV (08:20)
[2024-03-28] MEDS: HYZAAR 100-12.5 TABLET 1 TAB PO (08:20)
[2024-03-28] MEDS: THERAGRAN 1 TABLET PO (08:20)
--- NOTE | 2024-03-28 10:45 | W.PN.HOSP.TC ---
Addendum entered and electronically signed by Antwan Perez MD 03/28/24 11:07:
Sepsis was POA
Addendum entered and electronically signed by Antwan Perez MD 03/28/24 11:06:
Pt states had multiple BM's yesterday, constipation has resolved
Original Note:
Today's Communication/Plan
-
continue IV abx
dc perera in AM for voiding trial
will need close outpt eval post dc with Urology
Flomax added
will add Proscar
potential dc tomorrow without perera if able to void
Assessment / Plan
Assessment / Plan
68 y.o with RA on immunosuppression with methotrexate and hydroxychloroquine presenting with chills and lower urinary tract symptoms, found to have markedly positive u/a and leukocytosis c/w cystitis and possibly pyelonephritis.
Sepsis -POA - chills/fever equivalent at home (chronic immunosuppressant for RA), WBC peaked a 26.5k, bladder outlet obstruction with UTI
CT scan abd/pelvis: 1. Mild diffuse urinary bladder wall thickening which could be secondary to acute cystitis or chronic urinary bladder outlet obstruction.
2. Moderate enlargement of the prostate gland.
3. Mild bilateral perinephric fat stranding consistent with bilateral renal disease (possibly acute pyelonephritis if there are signs/symptoms of ascending urinary tract infection).
4. Severe diverticulosis in the descending and sigmoid colon.
5. Severe calcific atherosclerotic plaque in the abdominal aorta.
6. Severe multilevel discogenic degenerative disease in the lumbar spine.
Renal Bladder US: Sonographic images of the bladder demonstrate no large mucosal mass. Significantly elevated post void residual measuring 447 mL.
Prostate gland measures 5.6 x 5.6 x 4.6 cm. Calculated volume of 94 mL (normal less than 30).
IMPRESSION:
1. No hydronephrosis on either side. No posterior acoustic shadowing demonstrated to suggest nephrolithiasis.
2. Significant urinary retention.
3. Moderate prostatic enlargement.
4. Increased vascularity of each kidney symmetrically, a nonspecific finding which may be seen in the setting of renal infection or inflammation..
PLAN:
1. Complicated UTI - Male on immunosuppression with low grade temps, dysuria, frequency, urgency c/w UTI and possibly pyelonephritis. Given immunosuppression he has intermediate risk of decompensation. Predisposing factor is possibly undiagnosed
BPH. No stones on CT scan or hx of stones, no instrumentation or anatomic anomaly.
- blood cultures - NGTD
urine cultures - Proteus sens to Augmentin/Cefazolin
pt remains on Rocephin 1 gm q8AM
- antipyretics, analgesics and treatment control
- holding methotrexate
WBC 21.2-->26.5-->20.6-->10.7
2. CAD - S/p PCI ~ 5 yrs ago
- asa 81, statin
3, HTN - stable on home meds
- continue losartan-hctz
- continue amlodipine
4. RA
- holding methotrexate
- continue hydroxychloroquine.
5. Chronic constipation with diverticular disease
pt receiving various stool agents, pt wishes to see if responds prior to adding more
DVT PPX - lovenox sq
reviewed and updated Alyssia RN,
Code Status - Full Code
Anticipated Discharge: 24 - 48 hours
Subjective/Interval History
-
Date of Service: March 28, 2024
Feels remarkably better since perera placed
Objective Data
-
Labs:
Laboratory Results
03/28/24
07:01
WBC 10.7
Hgb 12.0 L
Hct 35.6 L
Plt Count 178
Sodium 139
Potassium 4.6
Chloride 100
Carbon Dioxide 29
BUN 16
Creatinine 0.8
Glucose 115 H
Calcium 9.2
Vital Signs:
Vital Signs
Temp Pulse Resp BP Pulse Ox
99.6 F 66 18 112/65 97
03/28/24 06:55 03/28/24 06:55 03/28/24 06:55 03/28/24 06:55 03/28/24 08:00
I&O
03/27/24 03/28/24 03/29/24
06:59 06:59 06:59
Intake Total 1020 / 1020 900 / 900
Output Total 1000 / 1000 3250 / 3250
Balance 20 / 20 -2350 / -2350
Review of Systems
-
History Source: Patient, Family ( at bedside on 2nd visit), Physician (discussed with Dr. Arango) and Coordinated Provider (reviewed with YOEL Cade)
Constitutional: Denies Fever
EENT: Reports No Symptoms Reported
Respiratory: Reports No Symptoms
Cardiac: Reports No Symptoms
Abdomen/GI: Reports Constipated
Genitourinary: Reports Dysuria, Frequency and Difficulty Voiding (has been chronic, but significantly worsened with associated acute episode, perera now placed)
Physical Exam
-
General: Well Developed, Well Nourished and No Apparent Distress (looks much less toxic past 24 hrs)
HEENT: Normocephalic, Atraumatic and Moist Mucous Membranes
Respiratory: Clear to Auscultation; Negative Wheezes, Rales or Rhonchi
Cardiac: Regular Rhythm and S1/S2
GI: Soft, Nontender and Nondistended
Musculoskeletal: No Clubbing, No Cyanosis and No Edema
Neuro: Awake, Alert and Oriented
[2024-03-28] MEDS: PROSCAR 5 MG PO (11:18)
--- NOTE | 2024-03-28 12:57 | VNURNOTE ---
Home Health Liaison met with patient and at bedside to discuss [facility] nurse/therapy, visits, schedule and homebound status. Patient is agreeable and understands that visits at home will be 2-3 x per week to assess and teach perera and UTI medical
management. [facility] brochure provided with contact information. Patient is aware that [facility] will contact them for start of care in 1-2 days after discharge from .
[facility] referral completed in [facility].
[2024-03-28 15:20] VITALS: BP 129/70
--- NOTE | 2024-03-28 16:58 | CM ---
Spoke with pt in room .
He requested [facility] at home .Referral info given to Zeinab Loepz liaison form [facility].
May need Agrawal at [place].
will drive him home.
PLAN Home with [facility] possible Agrawal
[2024-03-28] MEDS: ASPIR LOW (ENTERIC COATED) 81 MG PO (17:20)
[2024-03-28] MEDS: LIPITOR 80 MG PO (17:20)
[2024-03-28] MEDS: CELEBREX 200 MG PO (17:20)
[2024-03-28] MEDS: PLAQUENIL 400 MG PO (17:20)
[2024-03-28] MEDS: LOVENOX 40 MG SC (17:21)
[2024-03-28] MEDS: NORVASC 2.5 MG PO (17:21)
[2024-03-28] MEDS: FLOMAX 0.4 MG PO (19:55)
[2024-03-28 20:12] VITALS: BP 130/72
[2024-03-28 23:00] VITALS: BP 151/73
--- NOTE | 2024-03-29 03:26 | DOWNTIME ---
There was a [employer] Downtime on 03/29/2024 from 0100 to 03/29/2024 at 0300. Downtime documentation of patient's care, including medication administrations, has been reconciled in the electronic record per guidelines. Refer to the
patient's paper chart under the miscellaneous tab to see printed paper medication records and downtime forms.
[2024-03-29] MEDS: Pyridium 100 MG PO (04:47)
[2024-03-29] MEDS: TYLENOL 650 MG PO (04:47)
[2024-03-29 06:56] VITALS: BP 113/56
[2024-03-29] MEDS: MIRALAX 17 GRAMS PO (08:05)
[2024-03-29] MEDS: SENOKOT-S 1 TABLET PO (08:08)
[2024-03-29] MEDS: THERAGRAN 1 TABLET PO (08:08)
[2024-03-29] MEDS: HYZAAR 100-12.5 TABLET 1 TAB PO (08:08)
[2024-03-29] MEDS: VITAMIN D3 (cholecalciferol) 50 MCG PO (08:08)
[2024-03-29] MEDS: FOLVITE 1 MG PO (08:08)
[2024-03-29] MEDS: PROSCAR 5 MG PO (08:09)
[2024-03-29] MEDS: STERILE WATER FOR INJECTION 10 ML IV (08:09)
[2024-03-29] MEDS: ROCEPHIN 1000 MG IV (08:09)
[2024-03-29 09:35] LABS: % Basophils 0.9 % (0-2); % Eosinophils 1.7 % (0-6); % Immature Granulocytes 0.8 % (0-0.5); % Lymphocytes 12.6 % (20.5-51.1); % Monocytes 17.3 % (1.7-9.3); % Neutrophils 66.7 % (42.2-75.2); Absolute Basophils 0.1 10^3/uL (0-0.2); Absolute Eosinophils 0.1 10^3/uL (0-0.7); Absolute Immature Granulocytes 0.1 10^3/uL (0-0.05); Absolute Lymphocytes 0.8 10^3/uL (1.2-3.4); Absolute Monocytes 1.1 10^3/uL (0.1-0.6); Absolute Neutrophils 4.3 10^3/uL (1.4-6.5); Hematocrit 37.7 % (39.0-52.0); Hemoglobin 12.9 g/dL (13.0-18.0); Mean Corp Hgb Conc. 34.2 g/dL (33.0-37.0); Mean Corpuscular Hgb 30.2 pg (27.0-31.0); Mean Corpuscular Volume 88.3 fL (80.0-94.0); Nucleated Red Blood Cells % 0 % (-); Platelet Count 212 10^3/uL (130-400); Red Blood Cell Count 4.27 10^6/uL (4.70-6.10); Red Cell Dist. Width 12.4 % (11.5-14.5); White Blood Cell Count 6.4 10^3/uL (4.8-10.8)
[2024-03-29 10:34] LABS: Blood Urea Nitrogen 12 mg/dl (9-20); Calcium 9.6 mg/dl (8.4-10.2); Carbon Dioxide 26 mmol/L (22-30); Chloride 98 mmol/L (98-107); Estimated Creatinine Clearance 105 ml/min; Glucose 126 mg/dl (70-99); Potassium 4.1 mmol/L (3.5-5.1); Sodium 138 mmol/L (135-145); eGFR > 60.00
--- NOTE | 2024-03-29 11:57 | W.PN.HOSP.TC ---
Today's Communication/Plan
-
dc to home
Assessment / Plan
Assessment / Plan
68 y.o with RA on immunosuppression with methotrexate and hydroxychloroquine presenting with chills and lower urinary tract symptoms, found to have markedly positive u/a and leukocytosis c/w cystitis and possibly pyelonephritis.
Sepsis -POA - chills/fever equivalent at home (chronic immunosuppressant for RA), WBC peaked a 26.5k, bladder outlet obstruction with UTI
CT scan abd/pelvis: 1. Mild diffuse urinary bladder wall thickening which could be secondary to acute cystitis or chronic urinary bladder outlet obstruction.
2. Moderate enlargement of the prostate gland.
3. Mild bilateral perinephric fat stranding consistent with bilateral renal disease (possibly acute pyelonephritis if there are signs/symptoms of ascending urinary tract infection).
4. Severe diverticulosis in the descending and sigmoid colon.
5. Severe calcific atherosclerotic plaque in the abdominal aorta.
6. Severe multilevel discogenic degenerative disease in the lumbar spine.
Renal Bladder US: Sonographic images of the bladder demonstrate no large mucosal mass. Significantly elevated post void residual measuring 447 mL.
Prostate gland measures 5.6 x 5.6 x 4.6 cm. Calculated volume of 94 mL (normal less than 30).
IMPRESSION:
1. No hydronephrosis on either side. No posterior acoustic shadowing demonstrated to suggest nephrolithiasis.
2. Significant urinary retention.
3. Moderate prostatic enlargement.
4. Increased vascularity of each kidney symmetrically, a nonspecific finding which may be seen in the setting of renal infection or inflammation..
PLAN:
1. Complicated UTI - Male on immunosuppression with low grade temps, dysuria, frequency, urgency c/w UTI and possibly pyelonephritis. Given immunosuppression he has intermediate risk of decompensation. Predisposing factor is possibly undiagnosed
BPH. No stones on CT scan or hx of stones, no instrumentation or anatomic anomaly.
- blood cultures - NGTD
urine cultures - Proteus sens to Augmentin/Cefazolin
pt remains on Rocephin 1 gm q8AM, will dc on Augmentin
- antipyretics, analgesics and treatment control
- holding methotrexate
WBC 21.2-->26.5-->20.6-->10.7-->6.4
2. CAD - S/p PCI ~ 5 yrs ago
- asa 81, statin
3, HTN - stable on home meds
- continue losartan-hctz
- continue amlodipine
4. RA
- holding methotrexate takes on Mondays
- continue hydroxychloroquine.
5. Chronic constipation with diverticular disease
doing better, but remains not yet back to normal
DVT PPX - lovenox sq
reviewed and updated Alyssia RN,
Code Status - Full Code
dc to home
More than 30 minutes spent in discharge including
Final examination of the patient
Summarizing hospital stay
Instructions for continuing care to all relevant caregivers
Preparation of discharge records, prescriptions, and referral forms
Total time spent (in minutes): 45
Anticipated Discharge: Today
Subjective/Interval History
-
Date of Service: March 29, 2024
Feels better, urinating post perera removal
Objective Data
-
Labs:
Laboratory Results
03/29/24
09:21
WBC 6.4
Hgb 12.9 L
Hct 37.7 L
Plt Count 212
Sodium 138
Potassium 4.1
Chloride 98
Carbon Dioxide 26
BUN 12
Creatinine 0.7
Glucose 126 H
Calcium 9.6
Vital Signs:
Vital Signs
Temp Pulse Resp BP Pulse Ox
98.7 F 61 18 113/56 94
03/29/24 06:56 03/29/24 06:56 03/29/24 06:56 03/29/24 06:56 03/29/24 08:00
I&O
03/28/24 03/29/24 03/30/24
06:59 06:59 06:59
Intake Total 900 / 900 520 / 520
Output Total 3250 / 3250 2520 / 2520
Balance -2350 / -2350 -1999 /
Review of Systems
-
History Source: Patient, Family ( at computer, reviewing everything), Physician (discussed with Dr. Arango) and Coordinated Provider (reviewed with YOEL Cade)
Constitutional: Reports Fever (last night, since resolved)
EENT: Reports No Symptoms Reported
Respiratory: Reports No Symptoms
Cardiac: Reports No Symptoms
Abdomen/GI: Reports Constipated
Genitourinary: Reports Dysuria, Frequency and Difficulty Voiding (has been chronic, but significantly worsened with associated acute episode, perera now placed)
Physical Exam
-
General: Well Developed, Well Nourished and No Apparent Distress (looks nontoxic )
HEENT: Normocephalic, Atraumatic and Moist Mucous Membranes
Respiratory: Clear to Auscultation; Negative Wheezes, Rales or Rhonchi
Cardiac: Regular Rhythm and S1/S2
GI: Soft, Nontender and Nondistended
Musculoskeletal: No Clubbing, No Cyanosis and No Edema
Neuro: Awake, Alert and Oriented
--- NOTE | 2024-03-29 12:17 | W.DS.TRANS ---
DC Summary - Pharmacy Retail Support Specialist
-
Discharge Instructions:
Discharge Diagnosis/Procedures Pyelonephritis
Diet Low Sodium
Activity No strenuous activity
Blood Work CBC, CMP in 1-2 weeks, UA with culture after abx
completed
Other Services VN
Instructions:
Stand-Alone Forms:
Changes to Home Medications: Yes
Discharge Medications:
DC Medications w/original date entered in [facility]
aspirin 81 mg tablet,delayed release (Ecotrin Low Strength) 81 mg PO QPM Blood Clot Prevention/Tx 09/18/20
atorvastatin 80 mg tablet 80 mg PO QPM #90 tabs 09/18/20
cholecalciferol (vitamin D3) 25 mcg (1,000 unit) capsule (Vitamin D3) 2,000 unit PO DAILY Supplement 09/18/20
multivitamin (Daily-Jose tablet) 1 ea PO DAILY Supplement 09/18/20
amlodipine 2.5 mg tablet (Norvasc) 2.5 mg PO QPM Blood Pressure 03/25/24
celecoxib 200 mg capsule 200 mg PO QPM Pain 03/25/24
folic acid 1 mg tablet 1 mg PO DAILY Supplement 03/25/24
hydroxychloroquine 200 mg tablet (Plaquenil) 400 mg PO QPM rheumatoid arthritis 03/25/24
losartan 100 mg-hydrochlorothiazide 12.5 mg tablet 1 tab PO DAILY Blood Pressure 03/25/24
methotrexate sodium 2.5 mg tablet 7.5 mg PO MO rheumatoid arthritis 03/25/24
sildenafil 100 mg tablet 100 mg PO DAILYPRN PRN ed 03/25/24
turmeric 400 mg capsule 1,500 mg PO BID Supplement 03/25/24
amoxicillin 875 mg-potassium clavulanate 125 mg tablet 1 tab PO Q12H #20 tabs 03/29/24
finasteride 5 mg tablet 5 mg PO DAILY #30 tabs 03/29/24
tamsulosin 0.4 mg capsule 0.4 mg PO HS #30 caps 03/29/24
Home Medication Changes
Augmentin started to 10 days
Flomax and Proscar started for prostate
Pending Results: No
[2024-03-29 13:30] VITALS: BP 140/72
--- NOTE | 2024-03-29 14:19 | CM ---
entered order for dc.
He requested [facility] at home .Referral info given to Zeinab Lopez liaison form [facility].
Pt home with Agrawal at [place]
will drive him home.
IMM reviewed and signed yesterday on chart.
PLAN Home with [facility] with Tanja
--- NOTE | 2024-03-29 18:53 | PTCARENOTE ---
perera removed this am at 0630am. Pt voided multiple times through morning ranging from 150-200 with each void. Pt bladder scanned for 368ml ( after just voiding 150ml) per md order around 1145 MD made aware, okay for discharge. Pts called
later this evening saying pt having increased abd pain and voiding less, instructed if symptoms continue pt may have to come back to ER for catheter insertion, verbalized understanding.
== END 2024-03-29 13:34 | disposition home health service (06) | DRG 872 ==
LOC: 4 EAST ACU 19:53
PROVIDERS: ADMITTING PHYSICIAN Internal Medicine; ATTENDING PHYSICIAN Internal Medicine; CONSULT PHYSICIAN Urology; EMERGENCY PHYSICIAN Emergency Medicine; FAMILY PHYSICIAN Family Medicine
DX: A41.9 Sepsis, unspecified organism (principal); N10 Acute pyelonephritis; D84.821 Immunodeficiency due to drugs; I10 Essential (primary) hypertension; M06.9 Rheumatoid arthritis, unspecified; B96.4 Proteus (mirabilis) (morganii) as the cause of diseases classified elsewhere; E78.00 Pure hypercholesterolemia, unspecified; I25.10 Atherosclerotic heart disease of native coronary artery without angina pectoris; Z95.5 Presence of coronary angioplasty implant and graft; N32.0 Bladder-neck obstruction; N40.0 Benign prostatic hyperplasia without lower urinary tract symptoms; Z79.82 Long term (current) use of aspirin; Z79.631 Long term (current) use of antimetabolite agent; Z79.899 Other long term (current) drug therapy; Z90.49 Acquired absence of other specified parts of digestive tract; Z87.19 Personal history of other diseases of the digestive system
CPT/HCPCS: 51798; 74176; 76770; 80048; 81003; 81015; 83605; 85025; 85027; 86803; 87040; 87086; 87088; 87186; 96361; 96374; 99285

== ENCOUNTER 2024-03-29 18:54 | Emergency (ER) | payer MEDICARE, OTHER, SELFPAY ==
[2024-03-29 18:54] VITALS: BMI 28.4
[2024-03-29 18:56] VITALS: BP 135/78
--- NOTE | 2024-03-29 20:31 | ED.GENMED ---
History of Present Illness
General
Chief Complaint: Male Genito-Urinary Symptoms
Source: patient
Exam Limitations: none
Time Seen by Provider: 03/29/24 19:38
History of Present Illness
History of Present Illness:
This is a 68 year old male that comes in with c/o not being able to urinate. States that he was just discharged today. States that he was here on Wednesday with a fever and hematuria. States that he was admitted and treated. States that they took out
the catheter today and while he was here they were treating patient for Constipation. States that they waited 6 hour after removing the catheter and he was urinating. States that he went home and slowly he feels that he can't urinate. States that
he is going very little. States that there is burning with urination and patient is on an antibiotic at home. States that he has lower abd pain. States that he has a headache and has diarrhea. Denies any fever, chills, chest pain, SOB, nausea,
vomiting, dizziness.
Past History
Past History
ED Past Medical History: CAD (LAD s/p stent 2020), HTN, Hypercholesterolemia, Other (vertigo, RA, constipation, Diverticulitis) and Other (rheumatoid arthritis)
ED Past Surgical History: Cardiac (LAD stent 2020), Orthopedic (Right shoulder surgery), Urological (Hydrocele) and Other (inguinal hernia right, cataracts, )
Patient has exhibited threatening behavior?: No
Social History
Tobacco: Former smoker
Alcohol: Occasional
Personal:
Living: with family
Family History
Family History: Other (kidney stones in father and brother)
Review of Systems
Review of Systems
All Other Systems: ROS reviewed and negative except as documented in HPI and ROS
Constitutional: Reports no symptoms; Denies fever or chills
EENT: Reports no symptoms
Respiratory: Reports no symptoms; Denies cough or trouble breathing
Cardiac: Reports no symptoms; Denies chest pain
ABD/GI: Reports abdominal pain (lower abd pain) and diarrhea; Denies nausea or vomiting
: Reports dysuria and difficulty voiding
Musculoskeletal: Reports no symptoms
Skin: Reports no symptoms
Neurological: Reports headache; Denies dizzy
Psychiatric: Reports no symptoms
Phy Exam
General Physical Exam
General Presentation: well appearing and no apparent distress
General age: appears stated age
General Skin: warm and dry
General Habitus: elderly
General Mental: alert
General Hydration: appears well hydrated
ENT Exam
ENT Exam: TM's normal, pharynx normal and neck supple
Eye Exam
Eye Exam: EOMI
Cardiovascular Exam
Cardiovascular Exam: regular rate/rhythm, no edema, no murmur and normal peripheral pulses
Pulmonary Exam
Pulmonary Exam: lungs clear, no respiratory distress, no rales, chest non tender, no crackles, no rhonchi, no wheezing and no cough
Gastrointestinal Exam
Gastrointestinal Exam: normal bowel sounds, non tender, soft, no pulsatile mass, non distended and tender (Over bladder. Bladder 2 finger widths below naval)
Musculoskeletal Exam
Musculoskeletal Exam: full ROM and no edema
Skin Exam
Skin Exam: normal color, warm/dry, no rash and no petechia
Psychiatric Exam
Psychiatric Exam: normal mood/affect
Course
Orders/Labs/Results
Orders:
Orders
03/29/24 19:43
Bladder Scan- Treatment ONCE
03/29/24 19:58
Urinalysis Reflex To Culture Urgent
Date Specimen was Collected: 03/29/24
Time Specimen was Collected: 19:43
03/29/24 20:55
Complete Blood Count/With Diff Urgent
Comprehensive Metabolic Panel Urgent
Lactic Acid Urgent
03/29/24 21:20
Phenazopyridine HCl [Pyridium] 200 mg .ROUTE .STK-MED ONE
03/29/24 21:21
Phenazopyridine HCl [Pyridium] 200 mg PO NOW STA
Abnormal Lab Results
03/29/24
20:55
RBC 4.21 L 10^6/uL
(4.70-6.10)
Hgb 12.3 L g/dL
(13.0-18.0)
Hct 35.2 L %
(39.0-52.0)
Abs Immat Gran (auto) 0.1 H 10^3/uL
(0-0.05)
Absolute Monos (auto) 1.2 H 10^3/uL
(0.1-0.6)
Immature Gran % 1.4 H %
(0-0.5)
Lymphocytes % 17.0 L %
(20.5-51.1)
Monocytes % 16.3 H %
(1.7-9.3)
Creatinine 0.6 L mg/dL
(0.7-1.3)
Glucose 107 H mg/dl
(70-99)
Total Protein 6.1 L g/dl
(6.3-8.2)
03/29/24 20:55
03/29/24 20:55
H/H slightly low, Glucose Nonfasting Total protein slightly low.
Vital Signs
Initial and Last Documented VS:
Initial Vital Signs
Temp Pulse Resp BP Pulse Ox
97.8 F 73 16 135/78 98
03/29/24 18:56 03/29/24 18:56 03/29/24 18:56 03/29/24 18:56 03/29/24 18:56
Last Documented Vital Signs
Temp Pulse Resp BP Pulse Ox
97.8 F 67 16 142/76 99
03/29/24 18:56 03/29/24 22:13 03/29/24 22:13 03/29/24 22:13 03/29/24 22:13
MDM/Problems Addressed
Differential Diagnosis Includes:
Urinary retention. UTI
MDM/Problems Addressed:
This is a 68 year old male that was discharged form the hospital today after his catheter was removed. States that he got home he was urinating but then it started to slow. States that know he is not urinating much.
Bladder scan after patient voided was over 500ml. Will place catheter and check labs and urine.
Chronic conditions affecting care:
NA
Acute Exacerbation and/or Progression of Chronic Illness:
NA
*Pulse Oximetry
Patient hypoxic: no
*EKG
Interpreted by ED Provider?: NA
Rate: EKG- N/A
*Education Associate Interpretation
Rate: Education Associate- N/A
*Critical Care Note
Total Time (30-74mins, 75-104mins- exclusive of procedures): Not Applicable
ED Attending Note
-
Portions of this chart may have been created with voice recognition software.� Occasional wrong word or��sound alike� substitutions may have occurred due to the inherent limitations of voice recognition software.
Discharge Plan
Departure
Patient Disposition: Home (Routine Discharge)
Date of Disposition: 03/29/24
Time of Disposition: 22:49
Patient with high blood pressure during this ER visit?: Yes
Condition: Good
Covid-19: Not Applicable
Discharge Problem:
Acute urinary retention
Instructions: How to Care for Your Agrawal Catheter, Male, Urinary Retention (DC), BLOOD PRESSURE
Prescriptions:
New
phenazopyridine [Pyridium] 100 mg tablet
100 mg PO TID PRN (Reason: Pain) Qty: 7 0RF
No Action
multivitamin [Daily-Jose] 1 EACH tablet
1 ea PO DAILY
aspirin [Ecotrin Low Strength] 81 MG tablet,delayed release (DR/EC)
81 mg PO QPM
atorvastatin 80 MG tablet
80 mg PO QPM Qty: 90 5RF
amlodipine [Norvasc] 2.5 mg Tablet
2.5 mg PO QPM
sildenafil 100 mg Tablet
100 mg PO DAILYPRN PRN (Reason: ed)
methotrexate sodium 2.5 mg Tablet
7.5 mg PO MO
folic acid 1 mg Tablet
1 mg PO DAILY
hydroxychloroquine [Plaquenil] 200 mg Tablet
400 mg PO QPM
losartan-hydrochlorothiazide 100-12.5 mg Tablet
1 tab PO DAILY
celecoxib 200 mg Capsule
200 mg PO QPM
turmeric 400 mg Capsule
1,500 mg PO BID
tamsulosin 0.4 mg Capsule
0.4 mg PO HS Qty: 30 2RF
finasteride 5 mg Tablet
5 mg PO DAILY Qty: 30 0RF
amoxicillin-pot clavulanate 875-125 mg tablet
1 tab PO Q12H Qty: 20 1RF
cholecalciferol (vitamin D3) 25 mcg (1,000 unit) Tablet
50 mcg PO DAILY
Referrals:
Aileen Mobley, [Family Provider] -
Ismael Arango MD [Active] -
Activity Restrictions/Additional Instructions:
As discussed, please follow up with the urologist. The catheter will be left in until you are seen by Dr. Arango. Monitor for any temperature and continue with the antibiotics that you have been taking. IF YOU HAVE ANY FEVER, OR ANY OTHER CONCERNS
PLEASE RETURN TO THE EMERGENCY ROOM.
Interventions
Interventions:
*Risk Screen - Suicide Last Done: 03/29/24 18:56
*General Assessment Last Done: 03/29/24 19:44
*Neglect/Abuse Screening Last Done: 03/29/24 19:44
ED- Fall Risk Assessment Last Done: 03/29/24 19:44
*ED COVID-19 Vaccine History Last Done: 03/29/24 19:44
ED-Male Genitourinary Assessment Last Done: 03/29/24 19:43
Discharge Date and Time
Print Language: PERSIAN
[2024-03-29 20:36] LABS: Urine Albumin Negative (Neg - Trace); Urine Bilirubin Negative (Negative); Urine Character Clear (Clear); Urine Color Yellow; Urine Glucose Negative (Negative); Urine Ketone Negative (Negative); Urine Leukocyte Negative (Negative); Urine Nitrite Negative (Negative); Urine Occult Blood Negative (Negative); Urine Specific Gravity 1.015 (<1.030); Urine Urobilinogen Negative (Neg - 1+)
[2024-03-29 21:00] VITALS: BP 146/78
[2024-03-29 21:04] LABS: % Basophils 1.1 % (0-2); % Eosinophils 2.8 % (0-6); % Immature Granulocytes 1.4 % (0-0.5); % Monocytes 16.3 % (1.7-9.3); % Neutrophils 61.4 % (42.2-75.2); Absolute Basophils 0.1 10^3/uL (0-0.2); Absolute Eosinophils 0.2 10^3/uL (0-0.7); Absolute Immature Granulocytes 0.1 10^3/uL (0-0.05); Absolute Lymphocytes 1.3 10^3/uL (1.2-3.4); Absolute Monocytes 1.2 10^3/uL (0.1-0.6); Absolute Neutrophils 4.7 10^3/uL (1.4-6.5); Hematocrit 35.2 % (39.0-52.0); Hemoglobin 12.3 g/dL (13.0-18.0); Mean Corp Hgb Conc. 34.9 g/dL (33.0-37.0); Mean Corpuscular Hgb 29.2 pg (27.0-31.0); Mean Corpuscular Volume 83.6 fL (80.0-94.0); Mean Platelet Volume 9.8 fL (7.4-10.4); Nucleated Red Blood Cells % 0 % (-); Platelet Count 216 10^3/uL (130-400); Red Blood Cell Count 4.21 10^6/uL (4.70-6.10); Red Cell Dist. Width 12.6 % (11.5-14.5); White Blood Cell Count 7.6 10^3/uL (4.8-10.8)
[2024-03-29 21:15] LABS: Lactic Acid 0.7 mmol/L (0.7-2.0)
[2024-03-29 21:16] LABS: ALT (SGPT) 25 U/L (0-50); AST (SGOT) 33 U/L (17-59); Albumin 3.7 g/dl (3.5-5.0); Alkaline Phosphatase 62 U/L (38-126); Blood Urea Nitrogen 15 mg/dl (9-20); Calcium 9.4 mg/dl (8.4-10.2); Carbon Dioxide 24 mmol/L (22-30); Chloride 98 mmol/L (98-107); Estimated Creatinine Clearance 122 ml/min; Glucose 107 mg/dl (70-99); Sodium 136 mmol/L (135-145); Total Bilirubin 0.6 mg/dl (0.2-1.3); Total Protein 6.1 g/dl (6.3-8.2); eGFR > 60.00
[2024-03-29] MEDS: Pyridium 200 MG PO (21:22)
[2024-03-29 22:13] VITALS: BP 142/76
== END 2024-03-29 23:06 | disposition home or self-care (01) ==
LOC: EMR 18:54
PROVIDERS: Clinical Nurse Specialist Family Health; EMERGENCY PHYSICIAN Emergency Medicine; FAMILY PHYSICIAN Family Medicine
DX: R33.9 Retention of urine, unspecified (principal); R51.9 Headache, unspecified; R10.30 Lower abdominal pain, unspecified; R30.9 Painful micturition, unspecified; R19.7 Diarrhea, unspecified; I25.10 Atherosclerotic heart disease of native coronary artery without angina pectoris; I10 Essential (primary) hypertension; E78.00 Pure hypercholesterolemia, unspecified; K57.92 Diverticulitis of intestine, part unspecified, without perforation or abscess without bleeding; M06.9 Rheumatoid arthritis, unspecified; Z95.5 Presence of coronary angioplasty implant and graft; Z87.891 Personal history of nicotine dependence; Z79.82 Long term (current) use of aspirin
CPT/HCPCS: 99284; 51702; 51798; 80053; 81003; 83605; 85025

== ENCOUNTER → 2024-05-12 12:13 | Outpatient (REF) | payer MEDICARE, OTHER, SELFPAY | LOC: SDSPAT 12:13 | PROVIDERS: ATTENDING PHYSICIAN Urology; FAMILY PHYSICIAN Family Medicine; OTHER PHYSICIAN Internal Medicine Cardiovascular Disease; OTHER PHYSICIAN Internal Medicine Rheumatology | DX: N40.1 Benign prostatic hyperplasia with lower urinary tract symptoms (principal) | CPT/HCPCS: 36415; 86850; 86900; 86901; 93005 ==

== ENCOUNTER 2024-05-25 06:30 | Day surgery (SDC) | payer MEDICARE, OTHER, SELFPAY ==
[2024-05-12 12:52] VITALS: BMI 28.3
[2024-05-25] VITALS (15 sets, daily range): BP systolic 123–155; BP diastolic 66–80; BMI 28.3
[2024-05-25] MEDS: SUBLIMAZE 50 MCG IV ×2 (15:40→16:12)
[2024-05-25 16:25] LABS: Hematocrit 39.2 % (39.0-52.0); Hemoglobin 13.3 g/dL (13.0-18.0)
[2024-05-25 16:45] LABS: Blood Urea Nitrogen 15 mg/dl (9-20); Calcium 8.5 mg/dl (8.4-10.2); Carbon Dioxide 25 mmol/L (22-30); Chloride 103 mmol/L (98-107); Estimated Creatinine Clearance 105 ml/min; Glucose 142 mg/dl (70-99); Potassium 4.3 mmol/L (3.5-5.1); Sodium 141 mmol/L (135-145); eGFR > 60.00
[2024-05-25] MEDS: TORADOL 15 MG IV ×2 (17:09→22:15)
--- NOTE | 2024-05-25 17:47 | PTCARENOTE ---
pt admitted to 2S room 2101 @1730 from the PACU. pt arrived via bed, awake and alert. pt oriented to room, call ramirez, bed controls and plan of care with verbalized understanding. assessment as documented. 6 robotic incisions noted to abdomen BILLER
w/surgical glue intact. #[address] Agrawal catheter patent w/CBI connected and currently turned off. output is blood tinged, no clots noted. assisted to order dinner. will observe.
[2024-05-25] MEDS: NORVASC 2.5 MG PO (18:43)
[2024-05-25] MEDS: ASPIR LOW (ENTERIC COATED) 81 MG PO (18:43)
[2024-05-25] MEDS: LIPITOR 80 MG PO (18:43)
[2024-05-25] MEDS: OMNICEF 300 MG PO (20:19)
[2024-05-25] MEDS: NSS 1000 IV (20:19)
[2024-05-25] MEDS: SENOKOT 8.6 MG PO (20:20)
[2024-05-26 03:06] VITALS: BP 143/76
[2024-05-26] MEDS: TORADOL 15 MG IV ×2 (03:29→11:35)
[2024-05-26] MEDS: NSS 1000 IV (03:29)
[2024-05-26 07:00] VITALS: BP 154/76
[2024-05-26] MEDS: OMNICEF 300 MG PO (09:00)
[2024-05-26] MEDS: HYZAAR 100-12.5 TABLET 1 TAB PO (09:00)
[2024-05-26] MEDS: SENOKOT 8.6 MG PO (09:00)
[2024-05-26] MEDS: PROSCAR 5 MG PO (09:00)
--- NOTE | 2024-05-26 09:47 | W.PN.URO.CBU ---
Today's Communication / Plan
-
Discharge
Assessment / Plan
-
68M POD 1 s/p robotic simple prostatectomy
Agrawal to gravity
Discharge with catheter
PO pain control
OOB/ambulate
Discharge today
Diagnosis
-
Date of Service: May 26, 2024
-
Patient Diagnosis:
BPH
Urinary retention
Post Op Day: 1 s/p robotic simple prostatectomy
Subjective
-
pain controlled
tolerating diet
ambulating
no clots overnight, cath draining well
Objective
-
Vital Signs
Temp Pulse Resp BP Pulse Ox
98.9 F 62 16 154/76 98
05/26/24 07:00 05/26/24 07:00 05/26/24 07:00 05/26/24 07:00 05/26/24 07:00
Intake and Output
05/25/24 05/26/24 05/27/24
06:59 06:59 06:59
Intake Total 2310 / 2310
Output Total 2099 / 2099
Balance 210 / 210
Intake:
Oral fluids 460 / 460
IV fluids (Total) 1850 / 1850
normosol 350 / 350
IV piggybacks 0 / 0
Output:
Urine, Agrawal 2099
Laboratory Results
05/25/24 15:51
05/25/24 15:51
Physical Exam
-
General - well developed, well nourished, no acute distress
Chest - clear
Abdomen - soft, non-tender
Agrawal in place, light pink
Skin - warm & dry with no rash
Incision - clean, dry
Dressing - clean, dry, intact
--- NOTE | 2024-05-26 10:09 | CM ---
Met with pt at bedside
Pt reports he lives with his in a 2 story home; 8 steps to enter, 16 steps to 2nd fl, 1/2 bath on FF
Independent at baseline, drives
DME - none
SNF - denies past hx
HH - [facility] in past
Has ride at discharge
PCP - Aileen Mobley
Pharm - [facility] [place]
CM consult - Agrawal care
Discussed with pt -has had [facility] in past - requesting again
Address - [address] [place] [address]
TT sent to [facility] Liaison for home care needs
Plan - home with [facility]
[2024-05-26 11:00] VITALS: BP 149/75
--- NOTE | 2024-05-26 12:32 | VNURNOTE ---
Home Health Liaison met with patient to discuss [facility] nurse/therapy, visits, schedule and homebound status. Patient is agreeable and understands that visits at home will be 2-3 x per week to assess and teach medical management.
[facility] brochure provided with contact information. Patient is aware that [facility] will contact them for start of care in 1-2 days after discharge from .
[facility] referral completed in Care Port.
== END 2024-05-26 13:32 | disposition home or self-care (01) ==
LOC: SDS 06:30
PROVIDERS: ATTENDING PHYSICIAN Urology; FAMILY PHYSICIAN Family Medicine
DX: C61 Malignant neoplasm of prostate (principal); R33.8 Other retention of urine
CPT/HCPCS: 55867; 88307; 80048; 85014; 85018; 86900; 86901; 88341; 88342; 88344

== ENCOUNTER → 2024-06-02 08:14 | Outpatient (REF) | payer MEDICARE, OTHER, SELFPAY | LOC: RAD 08:14 | PROVIDERS: ATTENDING PHYSICIAN Urology; FAMILY PHYSICIAN Family Medicine | DX: N50.89 Other specified disorders of the male genital organs (principal) | CPT/HCPCS: 76870; 93976 ==

== ENCOUNTER → 2024-09-22 07:55 | Outpatient (REF) | payer MEDICARE, OTHER, SELFPAY ==
[2024-09-22 10:21] LABS: PSA, Total - Diagnostic 0.17 ng/ml (0.0-4.0)
== END ==
LOC: REG 07:55
PROVIDERS: ATTENDING PHYSICIAN Urology; FAMILY PHYSICIAN Family Medicine
DX: R33.9 Retention of urine, unspecified (principal); C61 Malignant neoplasm of prostate
CPT/HCPCS: 36415; 84153

== ENCOUNTER → 2024-10-06 10:29 | Outpatient (REF) | payer MEDICARE, OTHER, SELFPAY | LOC: MRI 3T 10:29 | PROVIDERS: ATTENDING PHYSICIAN Urology; FAMILY PHYSICIAN Family Medicine | DX: R33.9 Retention of urine, unspecified (principal) | CPT/HCPCS: 72197; A9575 ==

== ENCOUNTER → 2024-10-13 10:16 | Outpatient (REF) | payer MEDICARE, OTHER, SELFPAY | LOC: CLAB 10:16 | PROVIDERS: ATTENDING PHYSICIAN Urology | DX: C61 Malignant neoplasm of prostate (principal) | CPT/HCPCS: 88305 ==

== ENCOUNTER → 2025-02-05 12:57 | Outpatient (REF) | payer MEDICARE, OTHER, SELFPAY ==
[2025-02-05 13:49] LABS: Hematocrit 39.4 % (39.0-52.0); Hemoglobin 13.2 g/dL (13.0-18.0); Mean Corp Hgb Conc. 33.5 g/dL (33.0-37.0); Mean Corpuscular Volume 91.0 fL (80.0-94.0); Nucleated Red Blood Cells % 0 % (-); Platelet Count 217 10^3/uL (130-400); Red Cell Dist. Width 12.2 % (11.5-14.5)
[2025-02-05 14:48] LABS: ALT (SGPT) 24 U/L (0-50); AST (SGOT) 29 U/L (17-59); Albumin 4.5 g/dl (3.5-5.0); Alkaline Phosphatase 40 U/L (38-126); Blood Urea Nitrogen 22 mg/dl (9-20); Calcium 9.4 mg/dl (8.4-10.2); Carbon Dioxide 29 mmol/L (22-30); Chloride 103 mmol/L (98-107); Glucose 91 mg/dl (70-99); Potassium 4.2 mmol/L (3.5-5.1); Sodium 138 mmol/L (135-145); Total Protein 6.7 g/dl (6.3-8.2); eGFR > 60.00
[2025-02-05 14:54] LABS: C-Reactive Protein < 5.00 mg/L (0.0-10.00)
== END ==
LOC: REG 12:57
PROVIDERS: ATTENDING PHYSICIAN Internal Medicine Rheumatology; FAMILY PHYSICIAN Family Medicine
DX: M06.09 Rheumatoid arthritis without rheumatoid factor, multiple sites (principal); Z51.81 Encounter for therapeutic drug level monitoring
CPT/HCPCS: 36415; 80053; 85025; 85652; 86140

== ENCOUNTER → 2025-04-25 10:48 | Outpatient (REF) | payer MEDICARE, OTHER, SELFPAY ==
[2025-04-25 13:35] LABS: PSA, Total - Diagnostic 0.19 ng/ml (0.0-4.0)
== END ==
LOC: REG 10:48
PROVIDERS: ATTENDING PHYSICIAN Urology; FAMILY PHYSICIAN Family Medicine
DX: C61 Malignant neoplasm of prostate (principal); R33.9 Retention of urine, unspecified
CPT/HCPCS: 36415; 84153